=== PATIENT | female | born 1955 | race Caucasian/White ===

== ENCOUNTER 2018-01-03 20:03 | Emergency (ER) | payer MEDICAID ==
[~2018-01-03] VITALS: Ht 157.5 cm; Wt 87.1 kg
[2018-01-03 22:04] VITALS: BP 117/77
== END 2018-01-03 22:04 | disposition home or self-care (01) ==
LOC: ED 20:03
DX: M54.32 Sciatica, left side (principal); G43.909 Migraine, unspecified, not intractable, without status migrainosus; E07.9 Disorder of thyroid, unspecified; Z91.041 Radiographic dye allergy status; Z88.5 Allergy status to narcotic agent; Z88.6 Allergy status to analgesic agent; Z88.8 Allergy status to other drugs, medicaments and biological substances
CPT/HCPCS: J3010; Q0163

== ENCOUNTER 2018-01-16 22:53 | Emergency (ER) | payer MEDICAID ==
[~2018-01-16] VITALS: Ht 157.5 cm; Wt 87.1 kg
[2018-01-16 23:04] VITALS: Ht 157.5 cm; Wt 87.1 kg
[2018-01-17 01:43] VITALS: BP 131/74
== END 2018-01-17 01:43 | disposition home or self-care (01) ==
LOC: ED 22:53
DX: G89.29 Other chronic pain (principal); M54.42 Lumbago with sciatica, left side
CPT/HCPCS: J2270

== ENCOUNTER 2018-09-22 00:54 | Emergency (ER) | payer MEDICAID ==
[~2018-09-22] VITALS: Ht 157.5 cm; Wt 91.3 kg
[2018-09-22 01:45] VITALS: BP 137/76
== END 2018-09-22 01:45 | disposition home or self-care (01) ==
LOC: ED 00:54
DX: M54.30 Sciatica, unspecified side (principal); E11.9 Type 2 diabetes mellitus without complications; G43.909 Migraine, unspecified, not intractable, without status migrainosus; Z90.710 Acquired absence of both cervix and uterus; Z90.89 Acquired absence of other organs; Z91.041 Radiographic dye allergy status; Z88.5 Allergy status to narcotic agent
CPT/HCPCS: J2270; Q0163

== ENCOUNTER 2018-11-14 19:35 | Emergency (ER) | payer MEDICAID ==
[~2018-11-14] VITALS: Ht 157.5 cm; Wt 86.2 kg
[2018-11-14 21:08] VITALS: Ht 157.5 cm; Wt 86.2 kg
[2018-11-14 23:34] VITALS: BP 140/70
== END 2018-11-14 23:34 | disposition home or self-care (01) ==
LOC: ED 19:35
DX: M25.552 Pain in left hip (principal); G89.29 Other chronic pain; M54.5 Low back pain; E11.9 Type 2 diabetes mellitus without complications; G43.909 Migraine, unspecified, not intractable, without status migrainosus; F31.9 Bipolar disorder, unspecified; Z98.890 Other specified postprocedural states; Z88.2 Allergy status to sulfonamides; Z88.6 Allergy status to analgesic agent; Z88.8 Allergy status to other drugs, medicaments and biological substances; Z90.710 Acquired absence of both cervix and uterus
CPT/HCPCS: J2270

== ENCOUNTER 2019-07-25 22:47 | Emergency (ER) | payer MEDICAID ==
[~2019-07-25] VITALS: Ht 157.5 cm; Wt 81.6 kg
[2019-07-25 22:54] VITALS: Ht 157.5 cm; Wt 81.6 kg
[2019-07-26 00:15] VITALS: BP 136/74
== END 2019-07-26 00:29 | disposition home or self-care (01) ==
LOC: ED 22:47
DX: M54.5 Low back pain (principal); G89.29 Other chronic pain; S92.902D Unspecified fracture of left foot, subsequent encounter for fracture with routine healing; E11.9 Type 2 diabetes mellitus without complications; G43.909 Migraine, unspecified, not intractable, without status migrainosus; F31.9 Bipolar disorder, unspecified; Z90.710 Acquired absence of both cervix and uterus; Z98.890 Other specified postprocedural states; Z88.8 Allergy status to other drugs, medicaments and biological substances; Z88.6 Allergy status to analgesic agent; Z88.1 Allergy status to other antibiotic agents; X58.XXXD Exposure to other specified factors, subsequent encounter
CPT/HCPCS: J1200

== ENCOUNTER 2019-08-30 00:36 | Emergency (ER) | payer MEDICAID ==
[~2019-08-30] VITALS: Ht 157.5 cm; Wt 81.6 kg
[2019-08-30 00:48] VITALS: Ht 157.5 cm; Wt 81.6 kg
[2019-08-30 02:38] VITALS: BP 162/69
== END 2019-08-30 02:38 | disposition home or self-care (01) ==
LOC: ED 00:36
DX: M54.42 Lumbago with sciatica, left side (principal); E11.9 Type 2 diabetes mellitus without complications; G43.909 Migraine, unspecified, not intractable, without status migrainosus; F31.9 Bipolar disorder, unspecified; Z90.710 Acquired absence of both cervix and uterus; Z88.8 Allergy status to other drugs, medicaments and biological substances; Z88.6 Allergy status to analgesic agent
CPT/HCPCS: J1200; J2270

== ENCOUNTER 2019-09-09 21:43 | Emergency (ER) | payer MEDICAID ==
[~2019-09-09] VITALS: Ht 157.5 cm; Wt 82.7 kg
[2019-09-09 21:50] VITALS: Ht 157.5 cm; Wt 82.7 kg
[2019-09-09 22:53] VITALS: BP 160/82
== END 2019-09-09 22:53 | disposition home or self-care (01) ==
LOC: ED 21:43
DX: M54.42 Lumbago with sciatica, left side (principal); G89.29 Other chronic pain; M79.672 Pain in left foot; E11.9 Type 2 diabetes mellitus without complications; G43.909 Migraine, unspecified, not intractable, without status migrainosus; F31.9 Bipolar disorder, unspecified; Z90.710 Acquired absence of both cervix and uterus; Z88.8 Allergy status to other drugs, medicaments and biological substances; Z88.6 Allergy status to analgesic agent; Z90.89 Acquired absence of other organs
CPT/HCPCS: J1200; J2270

== ENCOUNTER 2019-09-18 03:32 | Emergency (ER) | payer MEDICAID ==
[~2019-09-18] VITALS: Ht 157.5 cm; Wt 81.6 kg
[2019-09-18 03:37] VITALS: Ht 157.5 cm; Wt 81.6 kg
[2019-09-18 04:56] VITALS: BP 147/78
== END 2019-09-18 04:56 | disposition home or self-care (01) ==
LOC: ED 03:32
DX: M54.30 Sciatica, unspecified side (principal); E11.9 Type 2 diabetes mellitus without complications; F31.9 Bipolar disorder, unspecified; E03.9 Hypothyroidism, unspecified; Z90.710 Acquired absence of both cervix and uterus; Z91.041 Radiographic dye allergy status; Z88.6 Allergy status to analgesic agent; Z88.5 Allergy status to narcotic agent; Z88.8 Allergy status to other drugs, medicaments and biological substances

== ENCOUNTER 2019-09-26 23:55 | Emergency (ER) | payer MEDICAID ==
[~2019-09-26] VITALS: Ht 167.6 cm; Wt 74.4 kg
[2019-09-27 00:07] VITALS: BP 164/81; Ht 167.6 cm; Wt 74.4 kg
== END 2019-09-27 00:49 | disposition left against medical advice (07) ==
LOC: ED 23:55
DX: Z53.21 Procedure and treatment not carried out due to patient leaving prior to being seen by health care provider (principal)

== ENCOUNTER 2019-10-01 03:04 | Emergency (ER) | payer MEDICAID ==
[~2019-10-01] VITALS: Ht 157.5 cm; Wt 88.5 kg
[2019-10-01 03:13] VITALS: Ht 157.5 cm; Wt 88.5 kg
[2019-10-01 04:15] VITALS: BP 150/45
== END 2019-10-01 04:15 | disposition home or self-care (01) ==
LOC: ED 03:04
DX: M54.32 Sciatica, left side (principal); G89.29 Other chronic pain; M25.551 Pain in right hip; E11.9 Type 2 diabetes mellitus without complications; E03.9 Hypothyroidism, unspecified; Z90.89 Acquired absence of other organs; Z88.6 Allergy status to analgesic agent; Z88.8 Allergy status to other drugs, medicaments and biological substances
CPT/HCPCS: J1200; J2270

== ENCOUNTER 2019-10-20 13:25 | Emergency (ER) | payer MEDICAID ==
[~2019-10-20] VITALS: Ht 157.5 cm; Wt 86.2 kg
[2019-10-20 13:45] VITALS: Ht 157.5 cm; Wt 86.2 kg
[2019-10-20 17:18] VITALS: BP 128/76
== END 2019-10-20 17:18 | disposition home or self-care (01) ==
LOC: ED 13:25
DX: M25.552 Pain in left hip (principal); M54.42 Lumbago with sciatica, left side; E11.9 Type 2 diabetes mellitus without complications; K21.9 Gastro-esophageal reflux disease without esophagitis; Z90.710 Acquired absence of both cervix and uterus; Z88.8 Allergy status to other drugs, medicaments and biological substances; Z98.51 Tubal ligation status; Z90.89 Acquired absence of other organs
CPT/HCPCS: J1200; J2270

== ENCOUNTER 2019-12-01 23:36 | Emergency (ER) | payer MEDICAID ==
[~2019-12-01] VITALS: Ht 157.5 cm; Wt 87.1 kg
[2019-12-01 23:42] VITALS: BP 126/82; Ht 157.5 cm; Wt 87.1 kg
== END 2019-12-02 01:15 | disposition home or self-care (01) ==
LOC: ED 23:36
DX: M54.42 Lumbago with sciatica, left side (principal); E11.9 Type 2 diabetes mellitus without complications; E03.9 Hypothyroidism, unspecified; Z90.710 Acquired absence of both cervix and uterus; Z88.8 Allergy status to other drugs, medicaments and biological substances; Z88.6 Allergy status to analgesic agent
CPT/HCPCS: J1200; J2270

== ENCOUNTER 2019-12-05 21:20 | Emergency (ER) | payer MEDICAID ==
[~2019-12-05] VITALS: Ht 167.6 cm; Wt 88.5 kg
[2019-12-05 21:24] VITALS: Ht 167.6 cm; Wt 88.5 kg
[2019-12-05 22:17] VITALS: BP 190/89
== END 2019-12-05 22:17 | disposition home or self-care (01) ==
LOC: ED 21:20
DX: M54.41 Lumbago with sciatica, right side (principal); E03.9 Hypothyroidism, unspecified; E11.9 Type 2 diabetes mellitus without complications; Z76.5 Malingerer [conscious simulation]; Z88.8 Allergy status to other drugs, medicaments and biological substances; Z88.6 Allergy status to analgesic agent; Z90.710 Acquired absence of both cervix and uterus; Z98.890 Other specified postprocedural states; Z90.89 Acquired absence of other organs

== ENCOUNTER 2019-12-12 01:16 | Emergency (ER) | payer MEDICAID ==
[~2019-12-12] VITALS: Ht 167.6 cm; Wt 88.9 kg
[2019-12-12 01:20] VITALS: Ht 167.6 cm; Wt 88.9 kg
[2019-12-12 02:48] VITALS: BP 165/91
== END 2019-12-12 02:35 | disposition home or self-care (01) ==
LOC: ED 01:16
DX: G89.29 Other chronic pain (principal); M25.552 Pain in left hip; E03.9 Hypothyroidism, unspecified; E11.9 Type 2 diabetes mellitus without complications; Z90.710 Acquired absence of both cervix and uterus; Z90.89 Acquired absence of other organs; Z88.6 Allergy status to analgesic agent; Z88.8 Allergy status to other drugs, medicaments and biological substances
CPT/HCPCS: J7512

== ENCOUNTER 2019-12-12 10:41 | Emergency (ER) | payer MEDICAID ==
[~2019-12-12] VITALS: Ht 157.5 cm; Wt 89.8 kg
[2019-12-12 11:03] VITALS: BP 149/86; Ht 157.5 cm; Wt 89.8 kg
== END 2019-12-12 14:53 | disposition left against medical advice (07) ==
LOC: ED 10:41
DX: Z53.21 Procedure and treatment not carried out due to patient leaving prior to being seen by health care provider (principal)

== ENCOUNTER 2020-01-06 00:42 | Emergency (ER) | payer MEDICAID ==
[~2020-01-06] VITALS: Ht 157.5 cm; Wt 90.7 kg
[2020-01-06 00:57] VITALS: Ht 157.5 cm; Wt 90.7 kg
[2020-01-06 02:46] VITALS: BP 156/93
== END 2020-01-06 02:46 | disposition home or self-care (01) ==
LOC: ED 00:42
DX: G89.29 Other chronic pain (principal); M25.551 Pain in right hip; E11.9 Type 2 diabetes mellitus without complications; E03.9 Hypothyroidism, unspecified; Z98.51 Tubal ligation status; Z90.710 Acquired absence of both cervix and uterus; Z88.8 Allergy status to other drugs, medicaments and biological substances
CPT/HCPCS: J1200; J2270

== ENCOUNTER 2020-01-26 23:44 | Emergency (ER) | payer MEDICAID | END 2020-01-26 23:55 | disposition left against medical advice (07) | LOC: ED 23:44 | DX: Z53.21 Procedure and treatment not carried out due to patient leaving prior to being seen by health care provider (principal) ==

== ENCOUNTER 2020-02-06 00:48 | Emergency (ER) | payer MEDICAID ==
[~2020-02-06] VITALS: Ht 167.6 cm; Wt 86.2 kg
[2020-02-06 00:59] VITALS: Ht 167.6 cm; Wt 86.2 kg
[2020-02-06 01:33] VITALS: BP 153/99
== END 2020-02-06 01:34 | disposition home or self-care (01) ==
LOC: ED 00:48
DX: M54.42 Lumbago with sciatica, left side (principal); G89.29 Other chronic pain; M25.552 Pain in left hip; E11.9 Type 2 diabetes mellitus without complications; E03.9 Hypothyroidism, unspecified; Z90.710 Acquired absence of both cervix and uterus; Z90.89 Acquired absence of other organs; Z98.84 Bariatric surgery status; Z88.8 Allergy status to other drugs, medicaments and biological substances; Z88.6 Allergy status to analgesic agent
CPT/HCPCS: J1200; J2270

== ENCOUNTER 2020-02-06 10:56 | Emergency (ER) | payer MEDICAID | END 2020-02-06 11:04 | disposition left against medical advice (07) | LOC: ED 10:56 | DX: Z53.21 Procedure and treatment not carried out due to patient leaving prior to being seen by health care provider (principal) ==

== ENCOUNTER 2020-02-16 00:19 | Emergency (ER) | payer OTHER | END 2020-02-16 00:31 | disposition left against medical advice (07) | LOC: ED 00:19 | DX: Z53.21 Procedure and treatment not carried out due to patient leaving prior to being seen by health care provider (principal) ==

== ENCOUNTER 2020-02-16 11:33 | Emergency (ER) | payer OTHER | END 2020-02-16 11:44 | disposition left against medical advice (07) | LOC: ED 11:33 | DX: Z53.21 Procedure and treatment not carried out due to patient leaving prior to being seen by health care provider (principal) ==

== ENCOUNTER 2020-03-17 03:07 | Emergency (ER) | payer OTHER ==
[~2020-03-17] VITALS: Ht 157.5 cm; Wt 89.0 kg
[2020-03-17 03:17] VITALS: Ht 157.5 cm; Wt 89.0 kg
[2020-03-17 03:57] VITALS: BP 161/75
== END 2020-03-17 03:57 | disposition home or self-care (01) ==
LOC: ED 03:07
DX: G89.29 Other chronic pain (principal); M54.42 Lumbago with sciatica, left side; E11.9 Type 2 diabetes mellitus without complications; E03.9 Hypothyroidism, unspecified; Z90.710 Acquired absence of both cervix and uterus; Z98.890 Other specified postprocedural states; Z88.6 Allergy status to analgesic agent; Z88.8 Allergy status to other drugs, medicaments and biological substances
CPT/HCPCS: J1200

== ENCOUNTER 2020-03-25 09:03 | Emergency (ER) | payer OTHER ==
[~2020-03-25] VITALS: Ht 157.5 cm; Wt 91.6 kg
[2020-03-25 09:16] VITALS: Ht 157.5 cm; Wt 91.6 kg
[2020-03-25 11:29] VITALS: BP 138/93
== END 2020-03-25 11:29 | disposition home or self-care (01) ==
LOC: ED 09:03
DX: M16.12 Unilateral primary osteoarthritis, left hip (principal); G89.29 Other chronic pain; M54.9 Dorsalgia, unspecified; E11.9 Type 2 diabetes mellitus without complications; E03.9 Hypothyroidism, unspecified; Z98.890 Other specified postprocedural states; Z90.710 Acquired absence of both cervix and uterus; Z88.6 Allergy status to analgesic agent; Z88.8 Allergy status to other drugs, medicaments and biological substances
CPT/HCPCS: J1200; J2270

== ENCOUNTER 2020-04-07 02:16 | Emergency (ER) | payer OTHER | END 2020-04-07 02:25 | disposition left against medical advice (07) | LOC: ED 02:16 | DX: Z53.21 Procedure and treatment not carried out due to patient leaving prior to being seen by health care provider (principal) ==

== ENCOUNTER 2020-04-19 09:33 | Emergency (ER) | payer OTHER ==
[~2020-04-19] VITALS: Ht 160 cm; Wt 81.6 kg
[2020-04-19 09:40] VITALS: Ht 160 cm; Wt 81.6 kg
[2020-04-19 11:22] VITALS: BP 128/79
== END 2020-04-19 11:22 | disposition home or self-care (01) ==
LOC: ED 09:33
DX: S00.81XA Abrasion of other part of head, initial encounter (principal); S60.419A Abrasion of unspecified finger, initial encounter; M54.42 Lumbago with sciatica, left side; M25.552 Pain in left hip; E11.9 Type 2 diabetes mellitus without complications; E03.9 Hypothyroidism, unspecified; Z90.89 Acquired absence of other organs; Z90.710 Acquired absence of both cervix and uterus; Z88.6 Allergy status to analgesic agent; W01.0XXA Fall on same level from slipping, tripping and stumbling without subsequent striking against object, initial encounter; Y93.89 Activity, other specified; Y92.89 Other specified places as the place of occurrence of the external cause; Y99.8 Other external cause status
CPT/HCPCS: 90715

== ENCOUNTER 2020-04-30 02:32 | Emergency (ER) | payer OTHER | END 2020-04-30 02:57 | disposition left against medical advice (07) | LOC: ED 02:32 | DX: Z53.21 Procedure and treatment not carried out due to patient leaving prior to being seen by health care provider (principal) ==

== ENCOUNTER 2020-04-30 09:40 | Emergency (ER) | payer OTHER ==
[~2020-04-30] VITALS: Ht 165.1 cm; Wt 90.7 kg
[2020-04-30 09:50] VITALS: Ht 165.1 cm; Wt 90.7 kg
[2020-04-30 11:09] VITALS: BP 127/87
== END 2020-04-30 11:09 | disposition home or self-care (01) ==
LOC: ED 09:40
DX: M54.42 Lumbago with sciatica, left side (principal); G89.29 Other chronic pain; E11.9 Type 2 diabetes mellitus without complications; Z91.041 Radiographic dye allergy status; Z88.6 Allergy status to analgesic agent
CPT/HCPCS: J1200; J2270

== ENCOUNTER 2020-05-07 08:48 | Emergency (ER) | payer OTHER | END 2020-05-07 08:55 | disposition left against medical advice (07) | LOC: ED 08:48 | DX: Z53.21 Procedure and treatment not carried out due to patient leaving prior to being seen by health care provider (principal) ==

== ENCOUNTER 2020-05-12 22:55 | Emergency (ER) | payer OTHER | END 2020-05-12 23:12 | disposition left against medical advice (07) | LOC: ED 22:55 | DX: Z53.21 Procedure and treatment not carried out due to patient leaving prior to being seen by health care provider (principal) ==

== ENCOUNTER 2020-06-01 03:47 | Emergency (ER) | payer OTHER ==
[~2020-06-01] VITALS: Ht 157.5 cm; Wt 88.5 kg
[2020-06-01 04:00] VITALS: BP 156/67
== END 2020-06-01 04:30 | disposition home or self-care (01) ==
LOC: ED 03:47
DX: G89.29 Other chronic pain (principal); M19.90 Unspecified osteoarthritis, unspecified site; M25.552 Pain in left hip; E11.9 Type 2 diabetes mellitus without complications; E03.9 Hypothyroidism, unspecified; Z90.710 Acquired absence of both cervix and uterus; Z90.89 Acquired absence of other organs; Z91.041 Radiographic dye allergy status; Z88.6 Allergy status to analgesic agent; Z88.8 Allergy status to other drugs, medicaments and biological substances

== ENCOUNTER 2020-06-01 15:43 | Emergency (ER) | payer OTHER ==
[~2020-06-01] VITALS: Ht 165.1 cm; Wt 86.6 kg
[2020-06-01 15:53] VITALS: BP 117/68; Ht 165.1 cm; Wt 86.6 kg
== END 2020-06-01 16:37 | disposition home or self-care (01) ==
LOC: ED 15:43
DX: M54.42 Lumbago with sciatica, left side (principal); G89.29 Other chronic pain; M79.672 Pain in left foot; E11.9 Type 2 diabetes mellitus without complications; Z76.5 Malingerer [conscious simulation]; Z91.041 Radiographic dye allergy status
CPT/HCPCS: J1885; Q0163

== ENCOUNTER 2020-06-22 10:47 | Emergency (ER) | payer OTHER | END 2020-06-22 11:03 | disposition left against medical advice (07) | LOC: ED 10:47 | DX: Z53.21 Procedure and treatment not carried out due to patient leaving prior to being seen by health care provider (principal) ==

== ENCOUNTER 2020-07-09 20:46 | Emergency (ER) | payer OTHER | END 2020-07-09 20:53 | disposition left against medical advice (07) | LOC: ED 20:46 | DX: Z53.21 Procedure and treatment not carried out due to patient leaving prior to being seen by health care provider (principal) ==

== ENCOUNTER 2020-07-13 18:48 | Emergency (ER) | payer OTHER | END 2020-07-13 19:01 | disposition left against medical advice (07) | LOC: ED 18:48 | DX: Z53.21 Procedure and treatment not carried out due to patient leaving prior to being seen by health care provider (principal) ==

== ENCOUNTER 2020-07-26 05:27 | Emergency (ER) | payer OTHER ==
[~2020-07-26] VITALS: Ht 157.5 cm; Wt 81.8 kg
[2020-07-26 05:33] VITALS: Ht 157.5 cm; Wt 81.8 kg
[2020-07-26 07:00] VITALS: BP 147/81
== END 2020-07-26 07:00 | disposition home or self-care (01) ==
LOC: ED 05:27
DX: G89.29 Other chronic pain (principal); M25.552 Pain in left hip; M54.30 Sciatica, unspecified side; E11.9 Type 2 diabetes mellitus without complications; E03.9 Hypothyroidism, unspecified; F31.9 Bipolar disorder, unspecified; Z90.710 Acquired absence of both cervix and uterus; Z91.041 Radiographic dye allergy status; Z88.6 Allergy status to analgesic agent; Z88.8 Allergy status to other drugs, medicaments and biological substances

== ENCOUNTER 2020-08-01 00:25 | Emergency (ER) | payer OTHER ==
[~2020-08-01] VITALS: Ht 157.5 cm; Wt 81.6 kg
[2020-08-01 00:34] VITALS: Ht 157.5 cm; Wt 81.6 kg
[2020-08-01 01:11] VITALS: BP 135/64
== END 2020-08-01 01:11 | disposition home or self-care (01) ==
LOC: ED 00:25
DX: G89.29 Other chronic pain (principal); M54.9 Dorsalgia, unspecified; Z76.5 Malingerer [conscious simulation]; E11.9 Type 2 diabetes mellitus without complications; Z91.041 Radiographic dye allergy status; Z88.6 Allergy status to analgesic agent

== ENCOUNTER 2020-08-08 16:33 | Emergency (ER) | payer OTHER ==
[~2020-08-08] VITALS: Ht 157.5 cm; Wt 83.5 kg
[2020-08-08 17:13] VITALS: Ht 157.5 cm; Wt 83.5 kg
[2020-08-08 18:32] VITALS: BP 124/83
== END 2020-08-08 18:32 | disposition home or self-care (01) ==
LOC: ED 16:33
DX: G89.29 Other chronic pain (principal); M25.552 Pain in left hip; E11.9 Type 2 diabetes mellitus without complications; Z91.041 Radiographic dye allergy status; Z88.6 Allergy status to analgesic agent
CPT/HCPCS: J1200; J2270

== ENCOUNTER 2020-08-19 03:40 | Emergency (ER) | payer OTHER ==
[~2020-08-19] VITALS: Ht 157.5 cm; Wt 84.5 kg
[2020-08-19 03:51] VITALS: BP 146/68; Ht 157.5 cm; Wt 84.5 kg
== END 2020-08-19 04:45 | disposition home or self-care (01) ==
LOC: ED 03:40
DX: M16.12 Unilateral primary osteoarthritis, left hip (principal); G89.29 Other chronic pain; M25.552 Pain in left hip; E11.9 Type 2 diabetes mellitus without complications; E03.9 Hypothyroidism, unspecified; Z90.710 Acquired absence of both cervix and uterus; Z88.8 Allergy status to other drugs, medicaments and biological substances
CPT/HCPCS: J1200; J1885

== ENCOUNTER 2020-08-29 17:24 | Emergency (ER) | payer OTHER | END 2020-08-29 18:01 | disposition left against medical advice (07) | LOC: ED 17:24 | DX: Z53.21 Procedure and treatment not carried out due to patient leaving prior to being seen by health care provider (principal) ==

== ENCOUNTER 2020-09-26 04:46 | Emergency (ER) | payer OTHER ==
[~2020-09-26] VITALS: Ht 157.5 cm; Wt 72.3 kg
[2020-09-26 05:13] VITALS: BP 149/79; Ht 157.5 cm; Wt 72.3 kg
== END 2020-09-26 06:43 | disposition left against medical advice (07) ==
LOC: ED 04:46
DX: Z53.21 Procedure and treatment not carried out due to patient leaving prior to being seen by health care provider (principal)

== ENCOUNTER 2020-10-03 02:13 | Emergency (ER) | payer OTHER ==
[~2020-10-03] VITALS: Ht 157.5 cm; Wt 87.5 kg
[2020-10-03 02:29] VITALS: BP 169/75; Ht 157.5 cm; Wt 87.5 kg
== END 2020-10-03 02:31 | disposition left against medical advice (07) ==
LOC: ED 02:13
DX: Z53.21 Procedure and treatment not carried out due to patient leaving prior to being seen by health care provider (principal)